=== PATIENT | male | born 1965 | race Caucasian/White ===

== ENCOUNTER 2017-02-23 10:01 | Emergency (ER) | payer OTHER ==
[~2017-02-23] VITALS: Ht 177.8 cm; Wt 103.2 kg
[~2017-02-23 10:01] MED LIST: ASPIRIN EC325 MG PO; CARVEDILOL6.25 MG PO; CLOPIDOGREL75 MG PO; GLIPIZIDE10 MG PO; GLIPIZIDE5 MG PO; GLUCOPHAGE1000 MG PO; HYZAAR 100-21 TABLET PO; LISINOPRIL40 MG PO; NITROSTAT0.4 MG SL; PERCOCET 5/31 TABLET PO; PRAVASTATIN SOD80 MG PO; VENTOLIN HFA18 GM IH; ZANAFLEX4 M1 PO; ZITHROMAX250 MG PO
[2017-02-23 10:40] LABS: ADD MIUA? YES; BILIRUBIN NEGATIVE; BLOOD SMALL; COLOR YELLOW ((YELLOW)); GLUCOSE (STRIP) 50; KETONES 5; LEUKOCYTES LARGE; NITRITE NEGATIVE; PROTEIN (STRIP) >=500; SPECIFIC GRAVITY 1.009 (1.000-1.030); UROBILINOGEN 0.2 MG/DL (0.2-1.0)
[2017-02-23 10:55] LABS: BACTERIA 3+ /HPF; BUDDING YEAST 2+; EPITHELIAL CELLS RARE /HPF; MUCUS NONE SEEN /LPF; UCUL ADDED? YES; WHITE BLOOD CELLS TNTC /HPF (0-5); WHITE BLOOD CELLS CLUMP FEW /HPF (0-5)
[2017-02-23 11:12] LABS: HEMATOCRIT 40.4 % (38.0-50.0); MCH 29.8 PG (29.0-34.0); MCHC 33.7 G/DL (30.0-36.0); MCV 88.6 FL (86-99); MEAN PLAT.VOLUME 10.5 uM^3 (9.0-12.4); PLATELET COUNT 344 K/uL (156-360); RBC DIS.WIDTH-CV 12.8 % (11.8-14.6); RBC DIS.WIDTH-SD 41.8 % (39-53); RED BLOOD COUNT 4.56 M/uL (4.00-5.50); WHITE BLOOD COUNT 15.6 K/uL (4.1-10.2)
[2017-02-23 11:27] LABS: CHLORIDE 101 mEq/L (99-109)
[2017-02-23 11:28] LABS: POTASSIUM 4.9 mEq/L (3.7-5.4); SODIUM 135 mEq/L (136-147)
[2017-02-23 11:30] LABS: GLUCOSE 202 mg/dL (70-99)
[2017-02-23 11:31] LABS: ANION GAP 13 MEQ/L (2-14)
[2017-02-23 11:32] LABS: TOTAL BILIRUBIN 0.5 mg/dL (0.0-1.0)
[2017-02-23 11:33] LABS: ALKALINE PHOSPHATASE 95 IU/L (3-129)
[2017-02-23 11:34] LABS: GFR ESTIMATE (CALCULATED) 45 mL/min/
[2017-02-23 11:35] LABS: UREA NITROGEN (BUN) 32 mg/dL (9-23)
[2017-02-23 12:50] LABS: INTER. NORMALIZED RATIO 1.1; PROTHROMBIN TIME 12.5 SEC (10.2-12.9)
[2017-02-23 12:52] LABS: PTT 31.1 SEC (25-37)
[2017-02-23 14:13] VITALS: BP 138/68
[2017-02-24] MEDS ORDERED: PRAVACHOL40 MG PO (11:48)
[2017-02-24] MEDS ORDERED: COREG25 M1 PO (11:49)
[2017-02-24] MEDS ORDERED: ZESTRIL5 MG PO (11:49)
[2017-02-24] MEDS ORDERED: PERCOCET 10/1 TABLET PO (11:50)
== END 2017-02-23 14:14 | disposition home or self-care (01) ==
LOC: EME 10:01
PROVIDERS: Physician Assistant
DX: N12 Tubulo-interstitial nephritis, not specified as acute or chronic (principal); Z87.442 Personal history of urinary calculi; I10 Essential (primary) hypertension; E11.9 Type 2 diabetes mellitus without complications; F17.200 Nicotine dependence, unspecified, uncomplicated; Z79.84 Long term (current) use of oral hypoglycemic drugs
CPT/HCPCS: 74176; 80053; 81003; 83605; 85027; 85610; 85730; 87040; 87077; 87086; 87186; 99281; 99285; J0696; J2270; J2405; J7030; J7050

== ENCOUNTER 2017-05-11 13:15 | Day surgery (SDC) | payer OTHER ==
[~2017-05-11] VITALS: Ht 176.5 cm; Wt 102.5 kg
[~2017-05-11 13:15] MED LIST changes: +CELEXA40 MG PO; +COREG25 M1 PO; +PERCOCET 10/1 TABLET PO; +PRAVACHOL40 MG PO; +ZESTRIL5 MG PO
[2017-05-11 14:32] LABS: POINT-OF-CARE METER ID UU14174212
== END 2017-05-11 15:45 | disposition home or self-care (01) ==
LOC: PAIN 13:15 → SDC 13:45 → PAIN 15:45
PROVIDERS: Anesthesiology Pain Medicine
DX: M50.13 Cervical disc disorder with radiculopathy, cervicothoracic region (principal); M47.12 Other spondylosis with myelopathy, cervical region; M48.02 Spinal stenosis, cervical region; M25.78 Osteophyte, vertebrae; I10 Essential (primary) hypertension; E11.9 Type 2 diabetes mellitus without complications; M19.012 Primary osteoarthritis, left shoulder; M51.26 Other intervertebral disc displacement, lumbar region; E78.00 Pure hypercholesterolemia, unspecified; M48.061 Spinal stenosis, lumbar region without neurogenic claudication; E66.3 Overweight; Z68.32 Body mass index [BMI] 32.0-32.9, adult; Z88.0 Allergy status to penicillin; Z95.5 Presence of coronary angioplasty implant and graft; Z79.84 Long term (current) use of oral hypoglycemic drugs; Z79.02 Long term (current) use of antithrombotics/antiplatelets; Z79.82 Long term (current) use of aspirin
CPT/HCPCS: 82948; J1100; J2250; J3010

== ENCOUNTER 2017-12-11 15:14 | Emergency (ER) | payer OTHER ==
[~2017-12-11] VITALS: Ht 175.3 cm; Wt 107.2 kg
[2017-12-11 15:23] VITALS: BP 142/87
== END 2017-12-11 18:06 | disposition home or self-care (01) ==
LOC: EME 15:14
DX: S93.401A Sprain of unspecified ligament of right ankle, initial encounter (principal); R20.0 Anesthesia of skin; E11.9 Type 2 diabetes mellitus without complications; X50.9XXA Other and unspecified overexertion or strenuous movements or postures, initial encounter; Y93.01 Activity, walking, marching and hiking; Y92.007 Garden or yard of unspecified non-institutional (private) residence as the place of occurrence of the external cause; Z88.0 Allergy status to penicillin; Z88.6 Allergy status to analgesic agent
CPT/HCPCS: 73630; 99281; 99284